=== PATIENT | male | born 1995 | race Hispanic/Latino ===

== ENCOUNTER 2016-05-20 09:20 | Emergency (ER) | payer OTHER ==
[~2016-05-20] VITALS: Ht 180.3 cm; Wt 122.5 kg
[~2016-05-20 09:20] MED LIST: LITHIUM CARBON300 M6 PO; PERCOCET 5-3251 EACH PO; RISPERIDONE1 M1 PO
[2016-05-20 09:25] VITALS: BP 150/93
--- NOTE | 2016-05-20 09:30 | ED HEADACHE COMPLAINT ---
History of Present Illness General Chief Complaint: General Adult Stated Complaint: CABRERA AND DIZZINESS XS 1 WEEK Source: patient Exam Limitations: no limitations Vital Signs & Intake/Output Vital Signs & Intake/Output Vital Signs Date Time Temp Pulse Resp B/P Pulse O2 O2 Flow FiO2 Ox Delivery Rate 05/20 0925 98.2 76 20 150/93 99 Room Air Allergies Coded Allergies: NO KNOWN ALLERGIES (09/16/15) Reconcile Medications Butalb/Acetaminophen/Caffeine (Fioricet 50-300-40 MG Capsule) 50 MG-300 MG-40 MG CAPSULE 1 TAB PO TID PRN MIGRAIN Ibuprofen 600 MG TABLET 1 TAB PO TID MIGRAINE with food Starkweather Carbonate (Starkweather Carbonate ER) 450 MG TABLET.ER 1 TAB PO DAILY MENTAL HEALTH (Reported) Starkweather Carbonate (Starkweather Carbonate ER) 450 MG TABLET.ER 2 TAB PO QPM MENTAL HEALTH (Reported) Ondansetron HCl (Zofran) 4 MG TABLET 1 TAB PO Q6-8P PRN NAUSEA Risperidone 1 MG TABLET 1 TAB PO BID PSYCH (Reported) Sertraline HCl 100 MG TABLET 1 TAB PO DAILY MENTAL HEALTH (Reported) Triage Note: PT TO ED C/O "HEAD PRESSURE" X 5 DAYS. ALSO C/O "FATIGUE". STATES "HEAD PRESSURE" HAS BEEN MAKING HIM DIZZY. Triage Nurses Notes Reviewed? yes Onset: Gradual Duration: constant Timing: recent history Severity Numbers: 6 Head Injury Location: temporal HPI: Patient is a 21-year-old male with a past medical history of bipolar currently on lithium who presents to emergency room with a five-day history of a gradual onset of bilateral temporal squeezing and pressure headache complaints which patient has associated symptoms of dizziness and nausea without emesis. Patient does not have a history of migraines however does have family history. Patient has not taken any medications for symptoms. Denies any fever chills photophobia tinnitus, abdominal pain, facial droop blurred vision neck pain neck stiffness. Patient able tolerate by mouth Patient states that he has not been taking his lithium for the past 2 days as he forgot (FATEMEH VELARDE) Past History Travel History Traveled to [place] past 21 day No Medical History Any Pertinent Medical History? 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 Multiple aunts with diabetes and thyroid cancer.). Hx Contributory? No (FATEMEH VELARDE) Review of Systems Review of Systems Constitutional: Reports: see HPI. Denies: chills, fever. Eyes: Reports: no symptoms. Ears, Nose, Throat, Mouth: Reports: no symptoms. Respiratory: Reports: no symptoms. Cardiovascular: Reports: no symptoms. Gastrointestinal/Abdominal: Reports: see HPI, nausea. Denies: abdominal pain. Genitourinary: Reports: no symptoms. Musculoskeletal: Reports: no symptoms. Skin: Reports: no symptoms. Neurological/Psychological: Reports: see HPI, headache. Hematologic/Endocrine: Reports: no symptoms. Endocrine: Reports: no symptoms. Immunologic/Allergic: Reports: no symptoms. All Other Systems: Reviewed and Negative (FATEMEH VELARDE) Physical Exam Physical Exam General Appearance: well developed/nourished, no apparent distress, alert Cranial Nerves: normal hearing, normal speech, PERRL Comments: Well-developed well-nourished person in no acute distress HEENT: Normal EENT exam, extraocular motion intact, no nystagmus. Pupils equally round and reactive to light and accommodation. Nose is atraumatic. External auditory canal and Tympanic membranes clear. Pharynx normal. No swelling or edema. Nontender sinus Neck: Supple, no lymphadenopathy, normal range of motion without pain or tenderness Back: Nontender, no CVA tenderness. Cardiovascular: Regular rate and rhythms no murmurs rubs or gallops, normal JVP Respiratory: Chest nontender. No respiratory distress.breath sounds clear to auscultation bilaterally Abdomen: Soft, nontender nondistended, no appreciable organomegaly. Normal bowel sounds. No ascites Extremity: No edema, no calf tenderness to palpation, normal and equal pulses. Neuro: Alert oriented x3, motor sensory normal, cranial nerves II through XII grossly intact. Skin: No appreciable rash on exposed skin, skin is warm and dry. Psych: Mood and affect is normal, memory and judgment is normal. Core Measures Severe Sepsis Present: No Septic Shock Present: No (FATEMEH VELARDE) Progress Differential Diagnosis: carotid dissection, cav sinus thromb, cluster CABRERA, encephalitis, IC mass/tumor, intracranial Hem., meningitis, migraine CABRERA, musculoskeletal pain, post LP headache, sinusitis, SSS thrombosis, subarach. Hem., tension CABRERA, temporal arteritis, TMJ syndrome, viral cephalgia Plan of Care: Orders Procedure Date/time Status LITHIUM 05/20 1009 Complete Laboratory Tests 05/20/16 1020: Starkweather 0.3 L Patient had improvement of headaches with above Motrin. Patient was strongly advised to take his lithium as directed. There are no signs of meningitis or concerns of subarachnoid hemorrhage. Denies any thunderclap concern of headaches or worse headache of life. Upon discharge patient looks well no apparent distress no cerebellar findings Negative [place]berg Normal steady gait on discharge (FATEMEH VELARDE) Departure Departure Disposition: HOME OR SELF CARE Condition: Stable Clinical Impression Primary Impression: Migraine Referrals: HUA MORAN APRN (PCP/Family) Additional Instructions: As discussed begin the prescription of ibuprofen for pain and inflammation and headaches. Begin the prescription of Zofran for nausea. Begin the prescription of Fioricet for breakthrough headache relief. If no better in one week follow- up with neurologist Dr. CABRERA for further evaluation treatment. If symptoms worsen return to emergency room. Continue home medications as directed especially your lithium. Prescriptions are waiting at [facility]. Departure Forms: Customer Survey General Discharge Information Prescriptions: Current Visit Scripts Butalb/Acetaminophen/Caffeine (Fioricet 50-300-40 MG Capsule) 1 TAB PO TID PRN MIGRAIN #15 MG Ibuprofen 1 TAB PO TID #20 TAB with food Ondansetron HCl (Zofran) 1 TAB PO Q6-8P PRN NAUSEA #10 TAB (FATEMEH VELARDE) PA/AREA PLANT MANAGER Co-Sign Statement Statement: ED Attending supervision documentation- [] I saw and evaluated the patient. I have also reviewed all the pertinent lab results and diagnostic results. I agree with the findings and the plan of care as documented in the PA's/AREA PLANT MANAGER's documentation. [x] I have reviewed the ED Record and agree with the PA's/AREA PLANT MANAGER's documentation. [] Additions or exceptions (if any) to the PAs/AREA PLANT MANAGER's note and plan are summarized below: [] (BRADY SCHMITT DO)
[2016-05-20] MEDS ORDERED: LITHIUM CARBON450 M1 PO ×2 (10:13→10:14)
[2016-05-20] MEDS ORDERED: SERTRALINE HCL100 MG PO (10:14)
[2016-05-20] MEDS ORDERED: FIORICET 50-301 EACH PO (10:30)
[2016-05-20] MEDS ORDERED: ZOFRAN4 M2 PO (10:30)
[2016-05-20] MEDS ORDERED: IBUPROFEN600 M1 PO (10:30)
== END 2016-05-20 11:38 ==
LOC: ERH 09:20
DX: G43.909 Migraine, unspecified, not intractable, without status migrainosus (principal)
CPT/HCPCS: J3101